=== PATIENT | male | born 1990 | race Caucasian/White ===

== ENCOUNTER 2016-09-15 10:29 | Inpatient (IN) | payer MEDICAID ==
[~2016-09-15] VITALS: Ht 185.4 cm; Wt 146.0 kg
[~2016-09-15 10:29] MED LIST: ETOMIDATE 20 MG/10 ML ONE; MIDAZOLAM 1 MG/ML, 5ML ONE; PROPOFOL 10 MG/ML, 100ML IV ONE; SUCCINYLCHOLINE 20 MG/ML, 10ML ONE
[2016-09-15] MEDS ORDERED: OMEP20TA62 PO (10:45)
[2016-09-15] MEDS ORDERED: NITROGLYCERIN/D5W PMX 250 ML IV PRN (11:00)
[2016-09-15] MEDS ORDERED: SODIUM CHLORIDE FLUSH 10ML SYR IVF ONE (11:00)
[2016-09-15] MEDS ORDERED: NITROGLYCERIN/D5W PMX 250 ML ONE (11:01)
[2016-09-15 11:25] LABS: BLOOD UREA NITROGEN 23 mg/dL (7-18)
[2016-09-15 11:30] LABS: ASPARTATE AMINO TRANSFERASE 914 U/L (15-37)
[2016-09-15] MEDS ORDERED: PIPERACILLIN/TAZO 3.375 GM in SODIUM CHLORIDE 0.9% 50 ML IVPB ONE (11:30)
[2016-09-15] MEDS ORDERED: VANCOMYCIN 2,400 MG in SODIUM CHLORIDE 0.9% 500 ML IV ONE (11:30)
[2016-09-15] MEDS ORDERED: SODIUM CHLORIDE 0.9% 1,000ML IVBOLUS ONE ×7 (11:30→18:30)
[2016-09-15] MEDS ORDERED: ACETAMINOPHEN 325 MG TABLET PO ONE (11:30)
[2016-09-15] MEDS ORDERED: VANCOMYCIN PER PHARMACY MC ONE (11:30)
[2016-09-15] MEDS ORDERED: ACETAMINOPHEN 500 MG TABLET ONE (11:31)
[2016-09-15 11:32] LABS: IS PT STATUS REG ER OR PRE ER? YES
[2016-09-15 11:44] LABS: ABG COLLECTION SITE LEFT RADIAL; COLLATERAL CIRCULATION TESTING NORMAL
[2016-09-15 12:20] LABS: DIFF TOTAL CELLS COUNTED 100 CELL DIFF
[2016-09-15 12:35] LABS: ANISOCYTOSIS 1+; POLYCHROMASIA 1+; VERIFY COUNTS? YES
[2016-09-15 12:36] LABS: HYPOCHROMIA 1+
[2016-09-15] MEDS ORDERED: TEMAZEPAM 15 MG CAPSULE PO PRN (13:00)
[2016-09-15] MEDS ORDERED: LORazepam 2 MG/ML, 1ML IVPush PRN (13:00)
[2016-09-15] MEDS ORDERED: POLYETHYLENE GLYCOL 17 GM PACKET PO PRN (13:00)
[2016-09-15] MEDS ORDERED: ENALAPRILAT 1.25 MG/ML, 2ML IVPush PRN (13:00)
[2016-09-15] MEDS ORDERED: SUCCINYLCHOLINE 20 MG/ML, 10ML IVPush ONE (13:30)
[2016-09-15] MEDS ORDERED: ETOMIDATE 40 MG/20 ML IVPush ONE (13:30)
[2016-09-15] MEDS ORDERED: PROPOFOL 10 MG/ML, 20ML IVPush ONE (13:30)
[2016-09-15] MEDS: PROPOFOL 100 ML IV PRN ×4 (13:52→22:37)
[2016-09-15] MEDS ORDERED: FENTANYL PF 100 MCG/2ML ONE (13:59)
[2016-09-15] MEDS ORDERED: MIDAZOLAM 1 MG/ML, 5ML IVPush ONE (14:00)
[2016-09-15] MEDS ORDERED: FENTANYL PF 100 MCG/2ML IV ONE (14:00)
[2016-09-15 14:10] LABS: IS PT STATUS REG ER OR PRE ER? YES
[2016-09-15] MEDS ORDERED: FENTANYL PF 2,500 MCG in SODIUM CHLORIDE 0.9% 200 ML IV ONE (15:00)
[2016-09-15 15:23] LABS: ABG COLLECTION SITE LEFT RADIAL; COLLATERAL CIRCULATION TESTING NORMAL
[2016-09-15] MEDS ORDERED: KETAMINE 10 MG/ML, 20ML ONE (15:50)
[2016-09-15] MEDS ORDERED: MIDAZOLAM HCL 25 MG in SODIUM CHLORIDE 0.9% 245 ML IV PRN (16:00)
[2016-09-15] MEDS ORDERED: KETAMINE 100 MG/ML, 5ML IV ONE (16:00)
[2016-09-15] MEDS: NOREPINEPHRINE 8 MG in SODIUM CHLORIDE 0.9% 246 ML IV PRN ×2 (16:30→22:24)
[2016-09-15] MEDS ORDERED: SODIUM BICARB 8.4%, 50ML SYRINGE IVPush STA ×2 (16:34→19:38)
[2016-09-15] MEDS ORDERED: NOREPINEPHRINE 1 MG/ML, 4ML ONE (16:39)
[2016-09-15] MEDS ORDERED: HEPARIN 5,000 UNITS/ML, 1ML IV ONE (17:00)
[2016-09-15] MEDS: CEFTRIAXONE PMX 1GM/50ML 50 ML IV SCH (18:27)
[2016-09-15] MEDS: SODIUM CHLORIDE 0.9% 1,000 ML IV SCH (18:28)
[2016-09-15] MEDS ORDERED: PHARMACY MAY ADJ FOR RENAL FX MC SCH (18:30)
[2016-09-15] MEDS ORDERED: VASOPRESSIN 100 UNIT in SODIUM CHLORIDE 0.9% 495 ML IV PRN (18:30)
[2016-09-15] MEDS ORDERED: DEXTROSE 50%, 50ML SYRINGE IVPush PRN (18:30)
[2016-09-15] MEDS ORDERED: ALBUTEROL/IPRATROPIUM 2.5MG/0.5MG, 3 ML INLINE PRN (18:30)
[2016-09-15] MEDS ORDERED: LIDOCAINE-MPF 1%, 2ML ENDO PRN (18:30)
[2016-09-15] MEDS ORDERED: VECURONIUM 10 MG IVPush ONE ×2 (18:30→20:30)
[2016-09-15] MEDS ORDERED: GLUCAGON 1 MG IM PRN (18:30)
[2016-09-15] MEDS ORDERED: VECURONIUM 10 MG ONE (18:41)
[2016-09-15] MEDS ORDERED: VECURONIUM 50 MG in SODIUM CHLORIDE 0.9% 250 ML IV SCH (19:38)
[2016-09-15] MEDS ORDERED: PHENYLEPHRINE 10 MG/ML ONE (19:46)
[2016-09-15] MEDS: SODIUM BICARBONATE 8.4% 150 MEQ in DEXTROSE 5% 1,000 ML IV SCH (20:00)
[2016-09-15] MEDS ORDERED: EPINEPHRINE 1 MG in SODIUM CHLORIDE 0.9% 249 ML IV PRN (20:00)
[2016-09-15] MEDS: AZITHROMYCIN 500 MG in SODIUM CHLORIDE 0.9% 250 ML IV SCH (20:01)
[2016-09-15] MEDS: HEPARIN 25,000 UNITS/500ML PMX 500 ML IV PRN (20:22)
[2016-09-15 20:52] LABS: IS PT STATUS REG ER OR PRE ER? NO
[2016-09-15] MEDS: PHENYLEPHRINE 10 MG in SODIUM CHLORIDE 0.9% 249 ML IV PRN ×2 (21:31→22:57)
[2016-09-15 23:24] LABS: RAPID INFLUENZA A Negative (Negative); RAPID INFLUENZA B Negative (Negative)
[2016-09-16] MEDS ORDERED: PHENYLEPHRINE 40 MG in SODIUM CHLORIDE 0.9% 246 ML IV PRN (00:22)
[2016-09-16] MEDS: FAMOTIDINE 20 MG TABLET PO SCH ×3 (00:30→19:34)
[2016-09-16] MEDS: SODIUM CHLORIDE 0.9% 1,000 ML IV SCH ×3 (01:44→20:44)
[2016-09-16] MEDS: ACETAMINOPHEN 325 MG TABLET PO PRN ×2 (02:44→14:17)
[2016-09-16] MEDS: NOREPINEPHRINE 8 MG in SODIUM CHLORIDE 0.9% 246 ML IV PRN ×2 (03:21→08:44)
[2016-09-16] MEDS: HEPARIN 5,000 UNITS/ML, 1ML IV PRN ×3 (03:26→18:29)
[2016-09-16] MEDS: PROPOFOL 100 ML IV PRN ×5 (04:21→19:42)
[2016-09-16 05:00] VITALS: BP 78/46
[2016-09-16 05:35] LABS: ASPARTATE AMINO TRANSFERASE 9875 U/L (15-37); BLOOD UREA NITROGEN 37 mg/dL (7-18)
[2016-09-16 05:52] LABS: DIFF TOTAL CELLS COUNTED 100 CELL DIFF
[2016-09-16 05:56] LABS: VERIFY COUNTS? YES
[2016-09-16 05:58] LABS: ANISOCYTOSIS 1+; POLYCHROMASIA 1+
[2016-09-16] MEDS: SENNA/DOCUSATE TABLET PO SCH (09:00)
[2016-09-16] MEDS ORDERED: FUROSEMIDE 40 MG/4 ML IV ONE (10:00)
[2016-09-16] MEDS: SODIUM BICARBONATE 8.4% 150 MEQ in DEXTROSE 5% 1,000 ML IV SCH (10:55)
[2016-09-16] MEDS: HEPARIN 25,000 UNITS/500ML PMX 500 ML IV PRN (12:18)
[2016-09-16 12:20] LABS: IS PT STATUS REG ER OR PRE ER? NO
[2016-09-16 12:21] LABS: BLOOD UREA NITROGEN 42 mg/dL (7-18)
[2016-09-16 16:34] LABS: ABG COLLECTION SITE LEFT RADIAL; COLLATERAL CIRCULATION TESTING NORMAL
[2016-09-16] MEDS: CEFTRIAXONE PMX 1GM/50ML 50 ML IV SCH (17:27)
[2016-09-16 18:01] LABS: IS PT STATUS REG ER OR PRE ER? NO
[2016-09-16] MEDS: AZITHROMYCIN 500 MG in SODIUM CHLORIDE 0.9% 250 ML IV SCH (18:23)
[2016-09-16 19:54] LABS: ABG COLLECTION SITE RIGHT RADIAL; COLLATERAL CIRCULATION TESTING NORMAL
[2016-09-16] MEDS: FENTANYL PF 2,500 MCG in SODIUM CHLORIDE 0.9% 200 ML IV PRN (19:57)
[2016-09-17 00:41] LABS: IS PT STATUS REG ER OR PRE ER? NO
[2016-09-17] MEDS: HEPARIN 25,000 UNITS/500ML PMX 500 ML IV PRN ×2 (00:56→20:38)
[2016-09-17] MEDS: HEPARIN 5,000 UNITS/ML, 1ML IV PRN ×2 (00:56→13:48)
[2016-09-17] MEDS: PROPOFOL 100 ML IV PRN ×4 (02:36→20:57)
[2016-09-17 04:32] LABS: BLOOD UREA NITROGEN 64 mg/dL (7-18)
[2016-09-17 04:56] LABS: ASPARTATE AMINO TRANSFERASE 6560 U/L (15-37); DIFF TOTAL CELLS COUNTED 100 CELL DIFF
[2016-09-17 04:58] LABS: ABG COLLECTION SITE LEFT RADIAL
[2016-09-17 04:58] LABS: ANISOCYTOSIS 1+; POLYCHROMASIA 1+; VERIFY COUNTS? YES
[2016-09-17 04:59] LABS: LARGE PLATELETS 1+; OVALOCYTES 1+
[2016-09-17 04:59] LABS: COLLATERAL CIRCULATION TESTING NORMAL
[2016-09-17] MEDS: FAMOTIDINE 20 MG TABLET PO SCH (08:58)
[2016-09-17] MEDS: SENNA/DOCUSATE TABLET PO SCH (08:59)
[2016-09-17] MEDS: SODIUM CHLORIDE 0.9% 1,000 ML IV SCH ×2 (09:35→23:00)
[2016-09-17] MEDS: FENTANYL PF 2,500 MCG in SODIUM CHLORIDE 0.9% 200 ML IV PRN (18:38)
[2016-09-17] MEDS: CEFTRIAXONE PMX 1GM/50ML 50 ML IV SCH (19:39)
[2016-09-17] MEDS: AZITHROMYCIN 500 MG in SODIUM CHLORIDE 0.9% 250 ML IV SCH (20:33)
[2016-09-17] MEDS: LABETALOL 5MG/ML, 20ML IVPush PRN (23:29)
[2016-09-18] MEDS: PROPOFOL 100 ML IV PRN ×7 (01:29→23:04)
[2016-09-18 04:12] LABS: BLOOD UREA NITROGEN 58 mg/dL (7-18)
[2016-09-18 04:15] LABS: DIFF TOTAL CELLS COUNTED 100 CELL DIFF
[2016-09-18 04:21] LABS: VERIFY COUNTS? YES
[2016-09-18 04:22] LABS: ANISOCYTOSIS 1+; HYPOCHROMIA 1+; POLYCHROMASIA 1+
[2016-09-18 04:22] LABS: ABG COLLECTION SITE LEFT RADIAL; COLLATERAL CIRCULATION TESTING NORMAL
[2016-09-18 04:23] LABS: OVALOCYTES 1+
[2016-09-18 04:25] LABS: LARGE PLATELETS 1+
[2016-09-18 04:30] LABS: ASPARTATE AMINO TRANSFERASE 3828 U/L (15-37)
[2016-09-18] MEDS: CARVEDILOL 3.125 MG TABLET PO SCH ×3 (07:30→21:17)
[2016-09-18] MEDS: ACETAMINOPHEN 325 MG TABLET PO PRN (09:12)
[2016-09-18] MEDS: FAMOTIDINE 20 MG TABLET PO SCH (09:12)
[2016-09-18] MEDS: SENNA/DOCUSATE TABLET PO SCH (09:12)
[2016-09-18] MEDS: HEPARIN 25,000 UNITS/500ML PMX 500 ML IV PRN ×2 (09:19→21:18)
[2016-09-18] MEDS ORDERED: DEXTROSE 50%, 50ML VIAL ONE (09:33)
[2016-09-18 09:52] LABS: HEP B SURF. AB < 3.1 mIU/mL (0.0-10.0)
[2016-09-18] MEDS: METOCLOPRAMIDE 5 MG/ML, 2ML IV SCH ×2 (12:43→19:56)
[2016-09-18] MEDS: CEFTRIAXONE PMX 1GM/50ML 50 ML IV SCH (17:07)
[2016-09-18] MEDS: AZITHROMYCIN 500 MG in SODIUM CHLORIDE 0.9% 250 ML IV SCH (18:39)
[2016-09-18] MEDS: FENTANYL PF 2,500 MCG in SODIUM CHLORIDE 0.9% 200 ML IV PRN (19:58)
[2016-09-19] MEDS: METOCLOPRAMIDE 5 MG/ML, 2ML IV SCH ×4 (02:29→21:59)
[2016-09-19 04:22] LABS: ABG COLLECTION SITE LEFT RADIAL; COLLATERAL CIRCULATION TESTING NORMAL
[2016-09-19] MEDS: PROPOFOL 100 ML IV PRN ×5 (05:25→23:57)
[2016-09-19] MEDS: CARVEDILOL 3.125 MG TABLET PO SCH (06:07)
[2016-09-19 06:13] LABS: ASPARTATE AMINO TRANSFERASE 1270 U/L (15-37); BLOOD UREA NITROGEN 60 mg/dL (7-18)
[2016-09-19 06:20] LABS: DIFF TOTAL CELLS COUNTED 100 CELL DIFF
[2016-09-19 06:22] LABS: ANISOCYTOSIS 1+; MICROCYTOSIS 1+; OVALOCYTES 1+; VERIFY COUNTS? YES
[2016-09-19 06:23] LABS: LARGE PLATELETS 1+
[2016-09-19] MEDS: HEPARIN 25,000 UNITS/500ML PMX 500 ML IV PRN ×2 (09:30→20:58)
[2016-09-19] MEDS: SENNA/DOCUSATE TABLET PO SCH (09:42)
[2016-09-19] MEDS: FAMOTIDINE 20 MG TABLET PO SCH (09:42)
[2016-09-19] MEDS ORDERED: MEROPENEM 1 GM in SODIUM CHLORIDE 0.9% 100 ML IV SCH ×2 (11:00→12:16)
[2016-09-19] MEDS ORDERED: MEROPENEM 250 MG in SODIUM CHLORIDE 0.9% 100 ML IV SCH (11:00)
[2016-09-19] MEDS ORDERED: MEROPENEM 500 MG in SODIUM CHLORIDE 0.9% 100 ML IV SCH (13:00)
[2016-09-19] MEDS: LINEZOLID PMX 600MG/300ML 300 ML IV SCH ×2 (13:25→22:02)
[2016-09-19 15:10] LABS: HIT LOT 23835; HIT OBC PASS; HIT RESULT NEGATIVE (NEGATIVE)
[2016-09-19] MEDS: MIDAZOLAM 1 MG/ML, 2ML IVPush PRN (19:15)
[2016-09-19] MEDS: morphine SULFATE 10 MG/ML, 1ML IVPush PRN (19:15)
[2016-09-19] MEDS: FENTANYL PF 2,500 MCG in SODIUM CHLORIDE 0.9% 200 ML IV PRN (19:44)
[2016-09-19] MEDS ORDERED: SODIUM CHLORIDE 0.9% 1,000 ML IV SCH (22:00)
[2016-09-19] MEDS: CARVEDILOL 6.25 MG TABLET PO SCH (22:00)
[2016-09-19] MEDS: SODIUM CHLORIDE FLUSH 10ML SYR IVF SCH (22:02)
[2016-09-19] MEDS: MEROPENEM 1 GM in SODIUM CHLORIDE 0.9% 100 ML IV SCH (23:57)
[2016-09-19] MEDS: SODIUM CHLORIDE 0.9% 1,000 ML IV SCH (23:58)
[2016-09-20] MEDS: METOCLOPRAMIDE 5 MG/ML, 2ML IV SCH ×4 (00:54→18:16)
[2016-09-20] MEDS: MIDAZOLAM 1 MG/ML, 2ML IVPush PRN ×2 (02:53→05:26)
[2016-09-20] MEDS: ACETAMINOPHEN 325 MG TABLET PO PRN (03:03)
[2016-09-20] MEDS: PROPOFOL 100 ML IV PRN ×6 (03:03→23:00)
[2016-09-20 04:23] LABS: ASPARTATE AMINO TRANSFERASE 454 U/L (15-37); BLOOD UREA NITROGEN 53 mg/dL (7-18)
[2016-09-20 04:28] LABS: ABG COLLECTION SITE RIGHT RADIAL; COLLATERAL CIRCULATION TESTING NORMAL
[2016-09-20 04:43] LABS: DIFF TOTAL CELLS COUNTED 100 CELL DIFF
[2016-09-20 04:46] LABS: VERIFY COUNTS? YES
[2016-09-20 04:47] LABS: ANISOCYTOSIS 1+; HYPOCHROMIA 1+; POLYCHROMASIA 1+
[2016-09-20 04:48] LABS: LARGE PLATELETS 1+
[2016-09-20] MEDS: morphine SULFATE 10 MG/ML, 1ML IVPush PRN (05:25)
[2016-09-20] MEDS: CARVEDILOL 6.25 MG TABLET PO SCH ×2 (05:26→18:16)
[2016-09-20] MEDS: HEPARIN 5,000 UNITS/ML, 1ML IV PRN (05:29)
[2016-09-20] MEDS: HEPARIN 25,000 UNITS/500ML PMX 500 ML IV PRN (07:35)
[2016-09-20] MEDS: FAMOTIDINE 20 MG TABLET PO SCH (09:00)
[2016-09-20] MEDS: SODIUM CHLORIDE FLUSH 10ML SYR IVF SCH ×2 (09:39→20:28)
[2016-09-20] MEDS: SENNA/DOCUSATE TABLET PO SCH (14:26)
[2016-09-20] MEDS: LINEZOLID PMX 600MG/300ML 300 ML IV SCH ×2 (14:26→22:59)
[2016-09-20] MEDS: MEROPENEM 1 GM in SODIUM CHLORIDE 0.9% 100 ML IV SCH (16:21)
[2016-09-20] MEDS: ASPIRIN 81 MG TABLET CHEW PO SCH (16:52)
[2016-09-20] MEDS: HEPARIN 5,000 UNITS/ML, 1ML SQ SCH (18:17)
[2016-09-20] MEDS: FENTANYL PF 2,500 MCG in SODIUM CHLORIDE 0.9% 200 ML IV PRN (19:06)
[2016-09-20] MEDS: SODIUM CHLORIDE 0.9% 1,000 ML IV SCH (20:35)
[2016-09-21] MEDS: METOCLOPRAMIDE 5 MG/ML, 2ML IV SCH ×4 (00:32→20:57)
[2016-09-21] MEDS: MEROPENEM 1 GM in SODIUM CHLORIDE 0.9% 100 ML IV SCH ×2 (00:32→14:51)
[2016-09-21] MEDS: HEPARIN 5,000 UNITS/ML, 1ML SQ SCH ×3 (01:51→20:57)
[2016-09-21] MEDS: PROPOFOL 100 ML IV PRN ×8 (01:58→22:35)
[2016-09-21 04:33] LABS: ABG COLLECTION SITE RIGHT RADIAL; COLLATERAL CIRCULATION TESTING NORMAL
[2016-09-21 04:45] LABS: ASPARTATE AMINO TRANSFERASE 183 U/L (15-37); BLOOD UREA NITROGEN 61 mg/dL (7-18)
[2016-09-21] MEDS: CARVEDILOL 6.25 MG TABLET PO SCH ×3 (05:32→20:58)
[2016-09-21] MEDS: ASPIRIN 81 MG TABLET CHEW PO SCH (08:21)
[2016-09-21] MEDS: FAMOTIDINE 20 MG TABLET PO SCH (08:22)
[2016-09-21] MEDS: SODIUM CHLORIDE FLUSH 10ML SYR IVF SCH ×2 (08:22→20:57)
[2016-09-21] MEDS: SENNA/DOCUSATE TABLET PO SCH (08:22)
[2016-09-21] MEDS ORDERED: LACTULOSE 20 GM/30 ML UDC NG PRN (09:30)
[2016-09-21] MEDS ORDERED: BISACODYL 10 MG SUPP PR PRN (09:30)
[2016-09-21] MEDS: ARANESP 100 MCG/ML **ESRD SQ SCH (13:59)
[2016-09-21] MEDS: FUROSEMIDE 40 MG/4 ML IV SCH (14:50)
[2016-09-21] MEDS: DOCUSATE 50 MG/5 ML, 10ML UDC NG SCH (14:50)
[2016-09-21] MEDS: LABETALOL 5MG/ML, 20ML IVPush PRN (14:56)
[2016-09-21] MEDS: LINEZOLID PMX 600MG/300ML 300 ML IV SCH (16:45)
[2016-09-21] MEDS: FENTANYL PF 2,500 MCG in SODIUM CHLORIDE 0.9% 200 ML IV PRN (19:54)
[2016-09-21] MEDS: SODIUM CHLORIDE 0.9% 1,000 ML IV SCH (22:04)
[2016-09-21] MEDS: ACETAMINOPHEN 325 MG TABLET PO PRN (22:34)
[2016-09-22] MEDS: MEROPENEM 1 GM in SODIUM CHLORIDE 0.9% 100 ML IV SCH (03:52)
[2016-09-22] MEDS: LINEZOLID PMX 600MG/300ML 300 ML IV SCH (03:53)
[2016-09-22] MEDS: PROPOFOL 100 ML IV PRN ×8 (03:53→22:29)
[2016-09-22] MEDS: METOCLOPRAMIDE 5 MG/ML, 2ML IV SCH ×4 (03:53→22:04)
[2016-09-22] MEDS: ARTIFICIAL TEARS OPHTH SOLN 15ML EACHEYE PRN (03:56)
[2016-09-22 04:27] LABS: ABG COLLECTION SITE RIGHT RADIAL; COLLATERAL CIRCULATION TESTING NORMAL
[2016-09-22 04:34] LABS: ASPARTATE AMINO TRANSFERASE 102 U/L (15-37); BLOOD UREA NITROGEN 62 mg/dL (7-18)
[2016-09-22] MEDS: HEPARIN 5,000 UNITS/ML, 1ML SQ SCH ×3 (05:39→22:05)
[2016-09-22] MEDS: SODIUM CHLORIDE FLUSH 10ML SYR IVF SCH ×2 (10:23→22:05)
[2016-09-22] MEDS: DOCUSATE 50 MG/5 ML, 10ML UDC NG SCH (10:24)
[2016-09-22] MEDS: SENNA/DOCUSATE TABLET PO SCH (10:24)
[2016-09-22] MEDS: FAMOTIDINE 20 MG TABLET PO SCH (10:24)
[2016-09-22] MEDS: ASPIRIN 81 MG TABLET CHEW PO SCH (10:24)
[2016-09-22] MEDS: METHYLNALTREXONE 12 MG/0.6 ML SQ SCH (10:25)
[2016-09-22] MEDS: CARVEDILOL 6.25 MG TABLET PO SCH ×3 (13:00→22:05)
[2016-09-22] MEDS: AMPICILLIN/SULBACTAM 3 GM in SODIUM CHLORIDE 0.9% 100 ML IV SCH ×2 (13:00→22:05)
[2016-09-22] MEDS: FUROSEMIDE 40 MG/4 ML IV SCH (13:00)
[2016-09-22] MEDS: SODIUM CHLORIDE 0.9% 1,000 ML IV SCH (22:07)
[2016-09-23] MEDS: PROPOFOL 100 ML IV PRN ×2 (01:14→03:26)
[2016-09-23] MEDS: METOCLOPRAMIDE 5 MG/ML, 2ML IV SCH ×4 (03:26→21:00)
[2016-09-23 05:02] LABS: ABG COLLECTION SITE RIGHT RADIAL; COLLATERAL CIRCULATION TESTING NORMAL
[2016-09-23 05:48] LABS: ASPARTATE AMINO TRANSFERASE 74 U/L (15-37); BLOOD UREA NITROGEN 68 mg/dL (7-18)
[2016-09-23] MEDS: HEPARIN 5,000 UNITS/ML, 1ML SQ SCH ×3 (06:19→21:33)
[2016-09-23] MEDS: DOCUSATE 50 MG/5 ML, 10ML UDC NG SCH (08:13)
[2016-09-23] MEDS: SENNA/DOCUSATE TABLET PO SCH (09:00)
[2016-09-23] MEDS: SODIUM CHLORIDE FLUSH 10ML SYR IVF SCH ×2 (09:00→21:17)
[2016-09-23] MEDS: CARVEDILOL 6.25 MG TABLET PO SCH ×3 (09:00→21:16)
[2016-09-23] MEDS: METHYLNALTREXONE 12 MG/0.6 ML SQ SCH (09:00)
[2016-09-23] MEDS: FUROSEMIDE 40 MG/4 ML IV SCH (14:23)
[2016-09-23] MEDS: AMPICILLIN/SULBACTAM 3 GM in SODIUM CHLORIDE 0.9% 100 ML IV SCH (14:24)
[2016-09-23] MEDS: ASPIRIN 81 MG TABLET CHEW PO SCH (15:22)
[2016-09-23] MEDS: FAMOTIDINE 20 MG TABLET PO SCH (15:23)
[2016-09-23] MEDS: OXYcodone IR 5MG TABLET PO PRN ×3 (15:23→21:18)
[2016-09-24] MEDS: METOCLOPRAMIDE 5 MG/ML, 2ML IV SCH ×2 (03:00→07:11)
[2016-09-24 04:18] LABS: ABG COLLECTION SITE RIGHT RADIAL; COLLATERAL CIRCULATION TESTING NORMAL
[2016-09-24] MEDS: SODIUM CHLORIDE 0.9% 1,000 ML IV SCH (04:44)
[2016-09-24] MEDS: OXYcodone IR 5MG TABLET PO PRN ×3 (04:56→17:33)
[2016-09-24 06:08] LABS: BLOOD UREA NITROGEN 65 mg/dL (7-18)
[2016-09-24] MEDS: HEPARIN 5,000 UNITS/ML, 1ML SQ SCH ×3 (06:36→23:57)
[2016-09-24] MEDS: DOCUSATE 50 MG/5 ML, 10ML UDC NG SCH (07:12)
[2016-09-24] MEDS: SENNA/DOCUSATE TABLET PO SCH (07:12)
[2016-09-24] MEDS: METHYLNALTREXONE 12 MG/0.6 ML SQ SCH (07:12)
[2016-09-24] MEDS: FAMOTIDINE 20 MG TABLET PO SCH (08:50)
[2016-09-24] MEDS: SODIUM CHLORIDE FLUSH 10ML SYR IVF SCH (08:50)
[2016-09-24] MEDS: CARVEDILOL 6.25 MG TABLET PO SCH ×3 (08:50→23:57)
[2016-09-24] MEDS: ASPIRIN 81 MG TABLET CHEW PO SCH (08:50)
[2016-09-24 14:04] VITALS: BP 139/86
[2016-09-24 21:08] VITALS: BP 154/89
[2016-09-24] MEDS: AMPICILLIN/SULBACTAM 3 GM in SODIUM CHLORIDE 0.9% 100 ML IV SCH (23:56)
[2016-09-24 23:57] VITALS: BP 133/80
[2016-09-24] MEDS: FUROSEMIDE 40 MG/4 ML IV SCH (23:57)
[2016-09-25] MEDS: OXYcodone IR 5MG TABLET PO PRN ×4 (01:19→20:59)
[2016-09-25 01:32] VITALS: BP 133/81
[2016-09-25 05:52] LABS: ABG COLLECTION SITE RIGHT RADIAL; COLLATERAL CIRCULATION TESTING NORMAL
[2016-09-25 07:05] VITALS: BP 138/87
[2016-09-25] MEDS: HEPARIN 5,000 UNITS/ML, 1ML SQ SCH ×3 (08:00→23:52)
[2016-09-25] MEDS: ASPIRIN 81 MG TABLET CHEW PO SCH (09:00)
[2016-09-25] MEDS: SENNA/DOCUSATE TABLET PO SCH (09:00)
[2016-09-25] MEDS: FUROSEMIDE 40 MG/4 ML IV SCH (09:00)
[2016-09-25] MEDS: CARVEDILOL 6.25 MG TABLET PO SCH ×3 (09:00→20:59)
[2016-09-25 14:46] VITALS: BP 134/79
[2016-09-25] MEDS: ONDANSETRON 2MG/ML, 2ML IVPush PRN (15:04)
[2016-09-25 18:33] VITALS: BP 105/72
[2016-09-25] MEDS: ARTIFICIAL TEARS OPHTH SOLN 15ML EACHEYE PRN (21:00)
[2016-09-25] MEDS: AMPICILLIN/SULBACTAM 3 GM in SODIUM CHLORIDE 0.9% 100 ML IV SCH (23:03)
[2016-09-26 02:00] VITALS: BP 114/72
[2016-09-26 05:00] LABS: ABG COLLECTION SITE RIGHT RADIAL; COLLATERAL CIRCULATION TESTING NORMAL
[2016-09-26 07:09] VITALS: BP 122/65
[2016-09-26] MEDS: SENNA/DOCUSATE TABLET PO SCH (09:00)
[2016-09-26] MEDS: HEPARIN 5,000 UNITS/ML, 1ML SQ SCH ×3 (09:10→23:40)
[2016-09-26] MEDS: CARVEDILOL 6.25 MG TABLET PO SCH ×3 (09:10→20:41)
[2016-09-26] MEDS: ASPIRIN 81 MG TABLET CHEW PO SCH (09:11)
[2016-09-26] MEDS: OXYcodone IR 5MG TABLET PO PRN ×3 (09:17→20:40)
[2016-09-26] MEDS: ONDANSETRON 2MG/ML, 2ML IVPush PRN (09:17)
[2016-09-26 09:29] LABS: BLOOD UREA NITROGEN 72 mg/dL (7-18)
[2016-09-26] MEDS: FUROSEMIDE 40 MG/4 ML IV SCH (12:24)
[2016-09-26 13:43] VITALS: BP 139/83
[2016-09-26 20:34] VITALS: BP 126/70
[2016-09-26] MEDS: AMPICILLIN/SULBACTAM 3 GM in SODIUM CHLORIDE 0.9% 100 ML IV SCH (23:40)
[2016-09-27 02:59] VITALS: BP 133/80
[2016-09-27 05:09] LABS: BLOOD UREA NITROGEN 89 mg/dL (7-18)
[2016-09-27] MEDS: SENNA/DOCUSATE TABLET PO SCH (07:50)
[2016-09-27 08:22] VITALS: BP 163/92
[2016-09-27] MEDS: AMPICILLIN/SULBACTAM 3 GM in SODIUM CHLORIDE 0.9% 100 ML IV SCH ×2 (12:35→23:14)
[2016-09-27] MEDS: OXYcodone IR 5MG TABLET PO PRN ×2 (12:40→17:06)
[2016-09-27] MEDS: FUROSEMIDE 40 MG/4 ML IV SCH (12:41)
[2016-09-27] MEDS: HEPARIN 5,000 UNITS/ML, 1ML SQ SCH ×3 (12:42→23:14)
[2016-09-27] MEDS: ASPIRIN 81 MG TABLET CHEW PO SCH (12:42)
[2016-09-27] MEDS: CARVEDILOL 6.25 MG TABLET PO SCH ×3 (12:42→22:38)
[2016-09-27 14:13] VITALS: BP 159/87
[2016-09-27] MEDS: ONDANSETRON 2MG/ML, 2ML IVPush PRN (18:27)
[2016-09-27 20:50] VITALS: BP 119/78
[2016-09-27] MEDS: morphine SULFATE 10 MG/ML, 1ML IVPush PRN (22:38)
[2016-09-28 02:58] VITALS: BP 130/75
[2016-09-28] MEDS: morphine SULFATE 10 MG/ML, 1ML IVPush PRN ×3 (05:21→21:31)
[2016-09-28 06:01] LABS: BLOOD UREA NITROGEN 59 mg/dL (7-18)
[2016-09-28 06:56] VITALS: BP 125/81
[2016-09-28] MEDS ORDERED: REGADENOSON 0.4 MG/5 ML SYRINGE ONE (08:13)
[2016-09-28] MEDS: CARVEDILOL 6.25 MG TABLET PO SCH ×2 (09:00→21:22)
[2016-09-28] MEDS: ASPIRIN 81 MG TABLET CHEW PO SCH (09:00)
[2016-09-28] MEDS: SENNA/DOCUSATE TABLET PO SCH (13:02)
[2016-09-28] MEDS: HEPARIN 5,000 UNITS/ML, 1ML SQ SCH ×2 (13:03→16:29)
[2016-09-28] MEDS: LISINOPRIL 5 MG TABLET PO SCH (13:07)
[2016-09-28] MEDS: ARANESP 100 MCG/ML **ESRD SQ SCH (13:08)
[2016-09-28] MEDS: SEVELAMER 800MG TABLET PO SCH ×2 (14:33→17:52)
[2016-09-28 14:54] VITALS: BP 134/71
[2016-09-28] MEDS ORDERED: FUROSEMIDE 40 MG TABLET PO SCH (17:00)
[2016-09-28] MEDS: FUROSEMIDE 80 MG TABLET PO SCH (17:52)
[2016-09-28 18:29] VITALS: BP 123/79
[2016-09-28] MEDS: OXYcodone IR 5MG TABLET PO PRN (18:32)
[2016-09-29 01:36] VITALS: BP 105/69
[2016-09-29] MEDS: morphine SULFATE 10 MG/ML, 1ML IVPush PRN ×3 (06:14→20:48)
[2016-09-29 06:54] LABS: ASPARTATE AMINO TRANSFERASE 33 U/L (15-37); BLOOD UREA NITROGEN 65 mg/dL (7-18)
[2016-09-29 07:49] VITALS: BP 116/72
[2016-09-29] MEDS: HEPARIN 5,000 UNITS/ML, 1ML SQ SCH ×3 (08:00→17:53)
[2016-09-29] MEDS: FUROSEMIDE 80 MG TABLET PO SCH ×2 (08:00→20:47)
[2016-09-29] MEDS: SEVELAMER 800MG TABLET PO SCH ×3 (08:00→20:47)
[2016-09-29] MEDS: CARVEDILOL 6.25 MG TABLET PO SCH ×2 (08:25→20:47)
[2016-09-29] MEDS: SENNA/DOCUSATE TABLET PO SCH (09:00)
[2016-09-29] MEDS: ASPIRIN 81 MG TABLET CHEW PO SCH (09:00)
[2016-09-29] MEDS: ONDANSETRON 2MG/ML, 2ML IVPush PRN (12:40)
[2016-09-29] MEDS ORDERED: FENTANYL PF 100 MCG/2ML ONE ×2 (13:34→13:56)
[2016-09-29] MEDS ORDERED: NALOXONE 1 MG/ML, 2ML ONE (13:34)
[2016-09-29] MEDS ORDERED: MIDAZOLAM 1 MG/ML, 5ML ONE ×2 (13:34→13:56)
[2016-09-29] MEDS ORDERED: FLUMAZENIL 0.1 MG/1 ML, 5ML ONE (13:35)
[2016-09-29] MEDS ORDERED: LIDOCAINE 1%, 20ML ONE (13:43)
[2016-09-29] MEDS ORDERED: CEFAZOLIN PMX 1GM/50ML 50 ML ONE (13:56)
[2016-09-29 14:05] VITALS: BP 151/79
[2016-09-29 16:07] VITALS: BP 151/79
[2016-09-29] MEDS: OXYcodone IR 5MG TABLET PO PRN (16:31)
[2016-09-29 19:31] VITALS: BP 115/57
[2016-09-29] MEDS: ATORVASTATIN 20 MG TABLET PO SCH (20:47)
[2016-09-29] MEDS: LISINOPRIL 5 MG TABLET PO SCH (20:47)
[2016-09-29] MEDS: ARTIFICIAL TEARS OPHTH SOLN 15ML EACHEYE PRN (20:48)
[2016-09-30 01:54] VITALS: BP 100/66
[2016-09-30 06:07] LABS: BLOOD UREA NITROGEN 36 mg/dL (7-18)
[2016-09-30 07:05] VITALS: BP 104/60
[2016-09-30] MEDS: SENNA/DOCUSATE TABLET PO SCH (09:00)
[2016-09-30] MEDS: LISINOPRIL 5 MG TABLET PO SCH (09:41)
[2016-09-30] MEDS: SEVELAMER 800MG TABLET PO SCH ×3 (09:41→16:42)
[2016-09-30] MEDS: ASPIRIN 81 MG TABLET CHEW PO SCH (09:41)
[2016-09-30] MEDS: HEPARIN 5,000 UNITS/ML, 1ML SQ SCH ×3 (09:42→16:42)
[2016-09-30] MEDS: CARVEDILOL 6.25 MG TABLET PO SCH ×2 (09:42→20:27)
[2016-09-30] MEDS: FUROSEMIDE 80 MG TABLET PO SCH ×2 (09:42→16:42)
[2016-09-30] MEDS: OXYcodone IR 5MG TABLET PO PRN ×3 (09:44→20:28)
[2016-09-30] MEDS: ONDANSETRON 2MG/ML, 2ML IVPush PRN (09:50)
[2016-09-30] MEDS: morphine SULFATE 10 MG/ML, 1ML IVPush PRN ×2 (11:57→16:51)
[2016-09-30 14:49] VITALS: BP 101/67
[2016-09-30] MEDS: ATORVASTATIN 20 MG TABLET PO SCH (20:27)
[2016-09-30 21:46] VITALS: BP 94/61
[2016-10-01] MEDS: HEPARIN 5,000 UNITS/ML, 1ML SQ SCH ×3 (00:12→16:00)
[2016-10-01 00:17] VITALS: BP 92/63
[2016-10-01] MEDS: morphine SULFATE 10 MG/ML, 1ML IVPush PRN ×3 (00:22→23:13)
[2016-10-01] MEDS ORDERED: OMEPRAZOLE 20 MG CAPSULE.DR PO ONE (01:00)
[2016-10-01 05:49] LABS: BLOOD UREA NITROGEN 50 mg/dL (7-18)
[2016-10-01 07:00] VITALS: BP 118/74
[2016-10-01] MEDS: FUROSEMIDE 80 MG TABLET PO SCH ×2 (08:00→17:35)
[2016-10-01] MEDS: OXYcodone IR 5MG TABLET PO PRN ×2 (08:49→20:23)
[2016-10-01] MEDS: ASPIRIN 81 MG TABLET CHEW PO SCH (08:49)
[2016-10-01] MEDS: SEVELAMER 800MG TABLET PO SCH ×3 (08:49→17:35)
[2016-10-01] MEDS: CARVEDILOL 6.25 MG TABLET PO SCH ×2 (08:50→20:24)
[2016-10-01] MEDS: LISINOPRIL 5 MG TABLET PO SCH (08:55)
[2016-10-01] MEDS: SENNA/DOCUSATE TABLET PO SCH (08:55)
[2016-10-01] MEDS: OMEPRAZOLE 20 MG CAPSULE.DR PO SCH ×2 (12:00→20:23)
[2016-10-01 18:48] VITALS: BP 104/66
[2016-10-01] MEDS: ATORVASTATIN 20 MG TABLET PO SCH (20:23)
[2016-10-02 01:04] VITALS: BP 95/63
[2016-10-02 06:16] LABS: BLOOD UREA NITROGEN 34 mg/dL (7-18)
[2016-10-02 08:24] VITALS: BP 124/83
[2016-10-02] MEDS: ASPIRIN 81 MG TABLET CHEW PO SCH (08:52)
[2016-10-02] MEDS: CARVEDILOL 6.25 MG TABLET PO SCH (08:53)
[2016-10-02] MEDS: FUROSEMIDE 80 MG TABLET PO SCH (08:53)
[2016-10-02] MEDS: HEPARIN 5,000 UNITS/ML, 1ML SQ SCH ×2 (08:54)
[2016-10-02] MEDS: OMEPRAZOLE 20 MG CAPSULE.DR PO SCH (08:54)
[2016-10-02] MEDS: SEVELAMER 800MG TABLET PO SCH ×2 (08:54→12:00)
[2016-10-02] MEDS: SENNA/DOCUSATE TABLET PO SCH (08:54)
[2016-10-02] MEDS ORDERED: LISINOPRIL 5 MG TABLET PO SCH (09:00)
[2016-10-02] MEDS: OXYcodone IR 5MG TABLET PO PRN (09:03)
[2016-10-02] MEDS: ACETAMINOPHEN 325 MG TABLET PO PRN (11:33)
[2016-10-02] MEDS ORDERED: DARB100V SQ (12:28)
[2016-10-02] MEDS ORDERED: ACET325T14 PO (12:28)
[2016-10-02] MEDS ORDERED: CARV6.2512 PO (12:28)
[2016-10-02] MEDS ORDERED: ASPI-515 PO (12:28)
[2016-10-02] MEDS ORDERED: SEVE800T PO (12:28)
[2016-10-02] MEDS ORDERED: LISI5TAB7 PO (12:28)
[2016-10-02] MEDS ORDERED: ATOR20TA9 PO (12:28)
[2016-10-02] MEDS ORDERED: FURO80TA3 PO (12:28)
== END 2016-10-02 14:45 | disposition home or self-care (01) | DRG 870 ==
LOC: EDBD 10:29 → ED 12:18 → EDIP 12:31 → CCU 16:29 → 4WST 09-24 13:43
PROVIDERS: ADMIT Internal Medicine; ATTEND Internal Medicine
PROC: 5A1955Z Respiratory Ventilation, Greater than 96 Consecutive Hours (ICD-10-PCS; principal; 2016-09-15)
PROC: 0BH17EZ Insertion of Endotracheal Airway into Trachea, Via Natural or Artificial Opening (ICD-10-PCS; 2016-09-15)
PROC: 02HV33Z Insertion of Infusion Device into Superior Vena Cava, Percutaneous Approach (ICD-10-PCS; 2016-09-17)
PROC: 5A1D60Z (ICD-10-PCS; 2016-09-17)
PROC: 0JH63XZ Insertion of Tunneled Vascular Access Device into Chest Subcutaneous Tissue and Fascia, Percutaneous Approach (ICD-10-PCS; 2016-09-29)
PROC: 05HN33Z Insertion of Infusion Device into Left Internal Jugular Vein, Percutaneous Approach (ICD-10-PCS; 2016-09-29)
PROC: B5141ZA Fluoroscopy of Left Jugular Veins using Low Osmolar Contrast, Guidance (ICD-10-PCS; 2016-09-29)
PROC: B544ZZA Ultrasonography of Left Jugular Veins, Guidance (ICD-10-PCS; 2016-09-29)
DX: A41.9 Sepsis, unspecified organism (principal); J96.01 Acute respiratory failure with hypoxia; N17.0 Acute kidney failure with tubular necrosis; I21.4 Non-ST elevation (NSTEMI) myocardial infarction; J69.0 Pneumonitis due to inhalation of food and vomit; K72.00 Acute and subacute hepatic failure without coma; R65.21 Severe sepsis with septic shock; I50.43 Acute on chronic combined systolic (congestive) and diastolic (congestive) heart failure; E44.0 Moderate protein-calorie malnutrition; Z68.41 Body mass index [BMI] 40.0-44.9, adult; E87.1 Hypo-osmolality and hyponatremia; I42.9 Cardiomyopathy, unspecified; Z99.11 Dependence on respirator [ventilator] status; E66.01 Morbid (severe) obesity due to excess calories; F43.10 Post-traumatic stress disorder, unspecified; I11.0 Hypertensive heart disease with heart failure; K21.9 Gastro-esophageal reflux disease without esophagitis; D64.9 Anemia, unspecified; E78.1 Pure hyperglyceridemia; G47.33 Obstructive sleep apnea (adult) (pediatric); I27.2 Other secondary pulmonary hypertension; R13.10 Dysphagia, unspecified; Z79.899 Other long term (current) drug therapy; Z90.49 Acquired absence of other specified parts of digestive tract; Z87.891 Personal history of nicotine dependence; Z99.2 Dependence on renal dialysis
CPT/HCPCS: 31500; 36415; 36556; 36558; 36600; 71010; 71275; 74174; 76700; 76937; 77001; 78452; 80048; 80053; 80061; 80069; 81001; 82803; 82805; 83605; 83735; 83880; 84100; 84145; 84443; 84478; 84484; 85025; 85379; 85520; 85610; 85730; 86022; 86480; 86705; 86706; 87040; 87070; 87081; 87086; 87205; 87340; 87400; 93005; 93017; 93306; 93970; 94002; 94003; 94150; 96361; 96365; 96375; 99292; C1894; J0295; J0456; J0690; J0696; J0882; J1644; J1940; J2020; J2185; J2250; J2405; J2543; J2704; J2785; J3010; J3370; J3490; J7070; A9502; C1750; C1769; C9898; J0330; J1642; J2060; J2270; J2310; J2370; J2765; J7030; J7040; J7050